=== PATIENT | female | born 1965 | race Hispanic/Latino ===

== ENCOUNTER → 2017-11-09 | Emergency (ER) | payer SELFPAY ==
[~2017-11-09] MED LIST: FLUORESCEIN SOD(OPTH) 1 MG STRP OP ONE; TETRACAINE HCL 0.5% OPTH SOLN 4 ML BTL OP ONE
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
== END | disposition home or self-care (01) ==
LOC: ER 12:15
DX: G51.0 Bell's palsy (principal); R20.2 Paresthesia of skin
CPT/HCPCS: 70450; 99284

== ENCOUNTER 2019-01-11 12:24 | Emergency (ER) | payer SELFPAY ==
[~2019-01-11] VITALS: Ht 154.9 cm; Wt 108.0 kg
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
[2019-01-11 13:44] VITALS: BP 122/83
== END 2019-01-11 13:49 | disposition home or self-care (01) ==
LOC: ER 12:24
DX: M25.562 Pain in left knee (principal); M25.561 Pain in right knee; M25.462 Effusion, left knee; S86.212A Strain of muscle(s) and tendon(s) of anterior muscle group at lower leg level, left leg, initial encounter; S86.211A Strain of muscle(s) and tendon(s) of anterior muscle group at lower leg level, right leg, initial encounter; I10 Essential (primary) hypertension; Z85.42 Personal history of malignant neoplasm of other parts of uterus
CPT/HCPCS: 99282